=== PATIENT | male | born 1960 | race Hispanic/Latino ===

== ENCOUNTER 2017-02-24 22:16 | Emergency (ER) | payer BC ==
[2017-02-24 22:22] VITALS: BP 166/106; PULSE 100; TEMP 97.8; O2SAT 98
--- NOTE | 2017-02-24 22:41 | C.PDOC ---
History Of Present Illness 57 year old male presents to the ER requesting detox from ETOH, last drink was a few hours [employer]. Patient has no complaints at this time. Time Seen by Provider: 02/24/17 22:27 Chief Complaint (Nursing): Substance Abuse History Per: Patient History/Exam Limitations: no limitations Onset/Duration Of Symptoms: Hrs Current Symptoms Are (Timing): Still Present Suicide/Self Injury Attempted (Context): None Associated Symptoms: denies: Depression, Suicidal Thoughts, Suicidal Plan Involuntary Hold By: None Recent travel outside of the [place]: No Past Medical History Reviewed: Historical Data, Nursing Documentation, Vital Signs Vital Signs: Last Vital Signs Temp 97.8 F 02/24/17 22:20 Pulse 100 H 02/24/17 22:20 Resp 20 02/24/17 22:55 BP 166/106 H 02/24/17 22:20 Pulse Ox 98 02/25/17 01:39 - Medical History PMH: Asthma Surgical History: No Surg Hx Family History: States: Unknown Family Hx - Social History Hx Alcohol Use: Yes Hx Substance Use: No - Immunization History Hx Tetanus Toxoid Vaccination: No Hx Influenza Vaccination: No Hx Pneumococcal Vaccination: No Review Of Systems Constitutional: Negative for: Fever, Chills Gastrointestinal: Negative for: Nausea, Vomiting, Diarrhea Physical Exam - Physical Exam Appears: Non-toxic, No Acute Distress, Other (Apparent rubor) Skin: Warm, Dry Head: Atraumatic, Normacephalic Eye(s): bilateral: Normal Inspection, EOMI Oral Mucosa: Moist Chest: Symmetrical, No Tenderness Cardiovascular: Rhythm Regular Respiratory: Normal Breath Sounds, No Rales, No Rhonchi, No Wheezing Gastrointestinal/Abdominal: Soft, No Tenderness Extremity: Normal ROM (x4) Neurological/Psych: Oriented x3, Normal Speech, Normal Cognition Gait: Steady ED Course And Treatment O2 Sat by Pulse Oximetry: 98 (room air) Pulse Ox Interpretation: Normal Progress Note: Informed patient there are no detox beds available at this time, patient is stable and AAO x 3 ambulatory with steady gait. Assistant Administrator was advised to call crisis in the morning to get prescreened fpr detox. Disposition Counseled Patient/Family Regarding: Diagnosis, Need For Followup - Disposition Disposition: HOME/ ROUTINE Disposition Time: 22:38 Condition: STABLE Additional Instructions: Please call Crisis office for available detox beds Return to ER if worse Instructions: Abuse of Alcohol (ED) Forms: [facility] ([employer]) - Clinical Impression Clinical Impression: Alcohol abuse - Scribe Statement The provider has reviewed the documentation as recorded by the Scribe Jenaro Xiao All medical record entries made by the Scribe were at my direction and personally dictated by me. I have reviewed the chart and agree that the record accurately reflects my personal performance of the history, physical exam, medical decision making, and the department course for this patient. I have also personally directed, reviewed, and agree with the discharge instructions and disposition.
[2017-02-24 22:57] VITALS: RESP 20
== END 2017-02-24 22:55 | disposition home or self-care (01) ==
LOC: C.ER 22:16
DX: F10.10 Alcohol abuse, uncomplicated (principal); Y90.9 Presence of alcohol in blood, level not specified